=== PATIENT | female | born 1965 | race Caucasian/White ===

== ENCOUNTER → 2016-04-14 | Outpatient (CLI) | payer OTHER ==
[~2016-04-14] MED LIST: AMOXICILLIN500 MG PO; ANAPROX DS550 MG PO; ANTIVERT25 MG PO; B12100 MC1 PO; BACTROBAN OINT22 GM PO; BENTYL10 MG PO; CIPROFLOXACIN500 MG PO; CYCLOBENZAPRINE5 MG PO; K-Dur 20MEQ20 MEQ PO; KEFLEX500 MG PO; LASIX40 MG PO; MIRALAX POWDER17 G1 PO; MOTRIN800 MG PO; NKHM; PRILOSEC20 MG PO; ROBAXIN500 MG PO; SEPTRA DS 800 M1 TAB PO; VICODIN ES 7501 TAB PO; VOLTAREN50 M1 PO; ZOFRAN ODT4 MG SL
== END | disposition home or self-care (01) ==
LOC: MRI 13:54
DX: S53.401A Unspecified sprain of right elbow, initial encounter (principal); M65.221 Calcific tendinitis, right upper arm; X58.XXXA Exposure to other specified factors, initial encounter; Y93.89 Activity, other specified; Y92.89 Other specified places as the place of occurrence of the external cause; Y99.8 Other external cause status

== ENCOUNTER 2019-04-29 09:33 | Observation (INO) | payer SELFPAY ==
[2019-04-29] VITALS (7 sets, daily range): BP systolic 102–142; BP diastolic 53–86
[~2019-04-29] VITALS: Ht 154.9 cm; Wt 75.3 kg
[2019-04-29 09:57] LABS: BASO % 0.4 % (0.0-1.0); EOS # 0.1 10*3/uL (0.0-0.4); EOS % 0.7 % (1.0-4.0); HEMATOCRIT 44.4 % (37.0-47.0); HEMOGLOBIN 14.4 g/dl (12.0-16.0); LYMPH # 2.3 10*3/uL (1.3-4.4); LYMPH % 24.2 % (27.0-41.0); MEAN CELL VOLUME 89.3 fl (81.0-99.0); MEAN CORPUSCULAR HGB CONC 32.4 g/dl (33.0-37.0); MEAN PLATELET VOLUME 9.8 fl (9.6-12.3); MONO # 0.6 10*3/uL (0.1-1.0); MONO % 6.1 % (3.0-9.0); NEUT # 6.6 10*3/uL (2.3-7.9); NEUT % 68.4 % (47.0-73.0); PLATELET COUNT AUTOMATED 276 10*3/uL (130-400); RED BLOOD COUNT 4.97 10*6/uL (4.10-5.10); RED CELL DISTRI WIDTH 13.3 % (0-14.5); WHITE BLOOD COUNT 9.7 10*3/uL (4.8-10.8)
[2019-04-29 10:09] LABS: ACT PARTIAL THROMBO TIME 28.2 SECONDS (20.0-32.1); INTERNATIONAL NORM RATIO 0.9 (2.0-3.5)
[2019-04-29 10:13] LABS: ALBUMIN 4.2 gm/dl (3.1-4.5); ALKALINE PHOSPHATASE 102 U/L (45-117); BUN 12 mg/dl (7-24); CHLORIDE 105 mmol/L (98-107); CREATININE 1.13 mg/dL (0.55-1.02); POTASSIUM 3.9 mmol/L (3.5-5.1); SGOT/AST 15 IU/L (3-35); SGPT/ALT 24 U/L (12-78); SODIUM 140 mmol/L (136-145); TOTAL PROTEIN 7.6 gm/dL (6.4-8.2)
[2019-04-29 10:16] LABS: TROPONIN I < 0.015 ng/ml (<0.045)
[2019-04-29] MEDS ORDERED: PROBIOTIC1 EAC4 PO (12:08)
[2019-04-29] MEDS ORDERED: CELEXA40 MG PO (12:09)
[2019-04-29] MEDS ORDERED: BUSPIRONE10 MG PO (12:10)
[2019-04-29] MEDS ORDERED: STOOL SOFTENER100 M3 PO (12:10)
[2019-04-29] MEDS ORDERED: VISTARIL25 M2 PO (12:11)
[2019-04-29] MEDS ORDERED: HYDROCHLOROTH12.5 M2 PO (12:11)
[2019-04-29] MEDS ORDERED: OMEPRAZOLE40 MG PO (12:12)
--- NOTE | 2019-04-29 12:35 | NUR ---
A 54, admitted to 5E, under the services of SUSHIL Carter DO with a diagnosis of CHEST PAIN. Chief complaint is CHEST PAIN. Patient arrived via bed from ER. Monitor applied. Initial assessment completed. Vital signs taken and recorded. SUSHIL CARTER DO notified of admission to the unit. Orders received. See assessment for past medical history, medications and allergies. Patient and/or family oriented to unit. [address] visitation policy reviewed. Clothing/patient valuable form completed. JOHANN GUTIÉRREZ
--- NOTE | 2019-04-29 19:35 | NUR ---
24 HR chart check completed.
--- NOTE | 2019-04-29 20:00 | NUR ---
SLEEPING. NO DISTRESS NOTED. RESPIRATIONS EASY. LUNGS DIMINISHED, CLEAR. PULSE OX 97% RA. DENIES CHEST PAIN. CALL LIGHT WITHIN REACH. NO VOICED COMPLAINTS
[2019-04-30] VITALS: BP 112/68
--- NOTE | 2019-04-30 | NUR ---
CONTINUES TO SLEEP WITH NO DISTRESS NOTED. RESPIRATIONS EASY. VSS. CALL LIGHT WITHIN REACH.
--- NOTE | 2019-04-30 06:00 | NUR ---
SLEPT THROUGHOUT NIGHT WITH NO DISTRESS NOTED. RESPIRATIONS EASY. NO COMPLAINTS OF CHEST PAIN. CALL LIGHT WITHIN REACH. NO VOICED COMPLAINTS THIS SHIFT
[2019-04-30 06:37] LABS: BASO # 0.1 10*3/uL (0.0-0.1); BASO % 0.6 % (0.0-1.0); EOS # 0.1 10*3/uL (0.0-0.4); LYMPH # 2.1 10*3/uL (1.3-4.4); LYMPH % 25.8 % (27.0-41.0); MEAN CELL VOLUME 88.1 fl (81.0-99.0); MEAN CORPUSCULAR HGB 28.7 pg (27.0-31.0); MEAN CORPUSCULAR HGB CONC 32.6 g/dl (33.0-37.0); MEAN PLATELET VOLUME 10.1 fl (9.6-12.3); MONO # 0.5 10*3/uL (0.1-1.0); MONO % 6.4 % (3.0-9.0); NEUT # 5.3 10*3/uL (2.3-7.9); PLATELET COUNT AUTOMATED 279 10*3/uL (130-400); RED BLOOD COUNT 5.22 10*6/uL (4.10-5.10); RED CELL DISTRI WIDTH 13.2 % (0-14.5)
[2019-04-30 07:00] LABS: ALBUMIN 4.1 gm/dl (3.1-4.5); ALKALINE PHOSPHATASE 101 U/L (45-117); BUN 11 mg/dl (7-24); CHLORIDE 105 mmol/L (98-107); CHOLESTEROL 239 mg/dL (<200); CREATININE 0.99 mg/dL (0.55-1.02); FREE T4 1.06 ng/dl (0.76-1.46); HDL CHOLESTEROL 50 mg/dl (40-60); LDL CHOLESTEROL 142 mg/dL (9-159); PHOSPHOROUS 3.4 mg/dL (2.5-4.9); POTASSIUM 4.4 mmol/L (3.5-5.1); SGOT/AST 20 IU/L (3-35); SGPT/ALT 27 U/L (12-78); SODIUM 139 mmol/L (136-145); TOTAL PROTEIN 7.5 gm/dL (6.4-8.2); TRIGLYCERIDES 237 mg/dl (<150); VLDL CHOLESTEROL 47 mg/dL (6-40)
[2019-04-30 07:20] LABS: VITAMIN D, 25-HYDROXY 21.9 ng/mL (30-100)
[2019-04-30] MEDS ORDERED: LIPITOR20 MG PO (07:51)
[2019-04-30 08:00] VITALS: BP 131/83
--- NOTE | 2019-04-30 08:38 | NUR ---
SITTING UP IN BED. NO ACUTE DISTRESS NOTED. RESPIRATIONS EASY. LUNGS DIMINISHED, CLEAR. PULSE OX 95% RA. DENIES CHEST PAIN. CALL LIGHT WITHIN REACH. NO VOICED COMPLAINTS
--- NOTE | 2019-04-30 09:30 | NUR ---
CONTACTED JENNI HATFIELD REGARDING CHANGE IN CARDIAC RHYTHM - PATIENT GOING IN AND OUT OF [facility]. PER JENNI, HOLD D/C UNTIL SHE IS OUT OF MEETING
--- NOTE | 2019-04-30 10:00 | NUR ---
STAT EKG OBTAINED, PATIENT NOT CURRENTLY IN BIGEMINY. PATIENT DENIES CHEST PAIN. VSS. ARTEAGA PRESENT ON FLOOR TO REVIEW MONITOR STRIP AND EKG. WILL DISCUSS WITH CARDIOLOGY REGARDING RECOMMENDATIONS
[2019-04-30] MEDS ORDERED: LOPRESSOR25 MG PO (10:21)
--- NOTE | 2019-04-30 10:49 | NUR ---
PATIENT AWAITING DISCHARGE, DR. HAYES TO SEE HER TODAY FIRST, SHE WILL FOLLOW UP WITH HIM IN OFFICE RE: HOLTER MONITOR WHICH CARDIAC REHAB WILL PLACE ON PATIENT ALSO PRIOR TO DISCHARGE.
--- NOTE | 2019-04-30 11:12 | NUR ---
Project Development Director in to talk to patient. Patient states lives at HOME with . There are FEW steps in the home. Physician: TINY MACK Pharmacy: [facility] health services: NONE Patient's level of ADLs: INDEPENDENT Patient has working utilities: YES DME: NONE Follow-up physician's appointment after d/c: WILL BE MADE BY HOSPITALIST NURSE DIRECTOR ON DISCHARGE Does patient want to access PORTAL?: NO Discharge plan PT LIVES AT HOME WITH HER AND IS INDEPENDENT IN HER CARE. DENIES SHE WILL HAVE NEEDS ON DISCHARGE. PLANS TO RETURN HOME WHEN MEDICALLY STABLE. STATES SHE WILL HAVE A RIDE HOME ON DISCHARGE. WILL CONTINUE TO FOLLOW.. AMANDA KILPATRICK
[2019-04-30 12:00] VITALS: BP 137/75
--- NOTE | 2019-04-30 12:15 | NUR ---
PER SHIRLEY HATFIELD SHE HAS SPOKEN WITH DR. HAYES RE: PATIENT TO FOLLOW UP WITH HIM IN OFFICE AND HE DOES NOT NEED TO SEE THE PATIENT PRIOR TO DISCHARGE TODAY. HOLTER MONITOR IS IN PLACE, PATIENT TO RETURN THE EQUIPMENT AFTER 48 HOURS, MONDAY AFTERNOON. PATIENT WILL ALSO HAVE A STRESS TEST ARRANGED AT HER NEXT CARDIOLOGY APPOINTMENT, WHICH HAS BEEN ARRANGED BY THE OFFICE STAFF.
--- NOTE | 2019-04-30 12:30 | NUR ---
Discharge instructions reviewed with patient. Patient receptive and verbalizes understanding. Follow-up care arranged. Written instructions given to patient. SHE IS CALLING FOR RIDE HOME. TEE PIKE
--- NOTE | 2019-04-30 13:04 | NUR ---
PATIENT DISCHARGED TO [facility], AMBULATORY, FOR TRANSPORT HOME BY PRIVATE VEHICLE WITH HER .
== END 2019-04-30 13:04 | disposition home or self-care (01) ==
LOC: ED 09:33 → EDHOLD 11:34 → 5E 11:56
PROVIDERS: Emergency Medicine; Registered Nurse; ADMIT Internal Medicine
DX: R07.89 Other chest pain (principal); F41.1 Generalized anxiety disorder; K21.9 Gastro-esophageal reflux disease without esophagitis; N17.0 Acute kidney failure with tubular necrosis; Z87.891 Personal history of nicotine dependence; Z23 Encounter for immunization

== ENCOUNTER → 2019-05-29 | Outpatient (CLI) | payer SELFPAY ==
[~2019-05-29] MED LIST changes: +BUSPIRONE10 MG PO; +CELEXA40 MG PO; +HYDROCHLOROTH12.5 M2 PO; +LIPITOR20 MG PO; +LOPRESSOR25 MG PO; +OMEPRAZOLE40 MG PO; +PROBIOTIC1 EAC4 PO; +STOOL SOFTENER100 M3 PO; +VISTARIL25 M2 PO
--- NOTE | 2019-05-29 07:48 | NUR ---
INFORMED CONSENT OBTAINED FOR A EXERCISE CARDIOLITE STRESS TEST WITH DR. HAYES. RESTING EKG SINUS VIRGIE WITH A HT RT OF 47 AND A BP OF 120/68 IN THE SUPINE POSITION. AND A HT RT OF 61 AND BP OF 114/64 IN THE STANDING POSITION. PT COMPLETED 4:50 OF A MICHAEL PROTOCOL WITH COMPLETION OG 1:50 INTO STAGE II AT 2.5 MPH AND 12% GRADE. REACHED A PEAK HT RT OF 155 WHICH IS 93% OF PREDICTED MAX WITH A PEAK BP OF 168/76. TEST TERMINATED DUE TO FATIGUE. EKG NON DIAGNOSTIC. HAS AN AVERAGE EXERCISE TOLERANCE. LAST RECOVERY HT RT OF 87, AND BP OF 138/48. TAKEN TO NUCLEAR IMAGING IN STABLE CONDITION.
== END | disposition home or self-care (01) ==
LOC: CARD 00:09
DX: I49.3 Ventricular premature depolarization (principal); R73.03 Prediabetes; E78.5 Hyperlipidemia, unspecified; Z82.49 Family history of ischemic heart disease and other diseases of the circulatory system

== ENCOUNTER 2020-02-03 10:06 | Observation (INO) | payer SELFPAY ==
[~2020-02-03] VITALS: Ht 154.9 cm; Wt 84.2 kg
[2020-02-03 10:10] VITALS: BP 154/86
[2020-02-03 10:57] LABS: BASO # 0.1 10*3/uL (0.0-0.1); BASO % 0.4 % (0.0-1.0); EOS % 0.1 % (1.0-4.0); HEMATOCRIT 44.7 % (37.0-47.0); LYMPH # 2.1 10*3/uL (1.3-4.4); LYMPH % 17.9 % (27.0-41.0); MEAN CELL VOLUME 85.8 fl (81.0-99.0); MEAN CORPUSCULAR HGB 27.6 pg (27.0-31.0); MEAN CORPUSCULAR HGB CONC 32.2 g/dl (33.0-37.0); MONO # 0.4 10*3/uL (0.1-1.0); MONO % 3.5 % (3.0-9.0); NEUT # 9.3 10*3/uL (2.3-7.9); NEUT % 77.8 % (47.0-73.0); PLATELET COUNT AUTOMATED 349 10*3/uL (130-400); RED BLOOD COUNT 5.21 10*6/uL (4.10-5.10); RED CELL DISTRI WIDTH 12.9 % (0-14.5)
[2020-02-03 11:01] LABS: BILIRUBIN Negative (Negative); BLOOD Negative (Negative); CLARITY Cloudy (Clear); COLOR Yellow (Yellow); GLUCOSE Negative (Negative); KETONE 1+ (Negative); LEUKO ESTERASE Trace (Negative); NITRITE Negative (Negative); SPECIFIC GRAVITY 1.025 (1.001-1.030)
[2020-02-03 11:06] LABS: PH >= 9.0 (4.5-8.0)
[2020-02-03 11:07] LABS: ACT PARTIAL THROMBO TIME 27.3 SECONDS (20.0-32.1)
[2020-02-03 11:12] LABS: ALBUMIN 4.3 gm/dl (3.1-4.5); CREATININE 1.28 mg/dL (0.55-1.02); POTASSIUM 3.1 mmol/L (3.5-5.1); TOTAL PROTEIN 7.6 gm/dL (6.4-8.2)
[2020-02-03 11:18] LABS: BACTERIA 3+; EPITHELIAL CELLS 31-40
--- NOTE | 2020-02-03 11:47 | NUR ---
PT IS SITTING UP IN THE BED. SHE STATES MINIMAL IMPROVEMENT WITH THE MEDICATIONS GIVEN.
[2020-02-03 12:27] VITALS: BP 148/56
--- NOTE | 2020-02-03 14:30 | NUR ---
PT HAD A FEW CRACKERS AND AN APPLE JUICE AND REPORTS FEELING SLIGHTLY IMPROVED.
--- NOTE | 2020-02-03 15:30 | NUR ---
PT AGAIN WITH DIAPHORESIS AND NAUSEA AND DRY HEAVES. DR. MEDINA IS AWARE. PT WILL BE MEDICATED PER DR. PIERRE.
--- NOTE | 2020-02-03 15:48 | NUR ---
PT IS RESTING IN BED.
--- NOTE | 2020-02-03 16:47 | NUR ---
PT SLEEPING IN ROOM.
--- NOTE | 2020-02-03 17:57 | NUR ---
STATUS REMAINS UNCHANGED. PT IS SLEEPING IN ROOM.
--- NOTE | 2020-02-03 19:12 | NUR ---
ASSUMED PT CARE FROM NIRMALA BHATTI RN
--- NOTE | 2020-02-03 21:00 | NUR ---
A 54, admitted to 4E, under the services of MONIK Alvares DO with a diagnosis of RIGHT FLANK PAIN, NAUSEA/VOMITING. Chief complaint is PAIN. Patient arrived via bed from ER. Monitor applied. Initial assessment completed. Vital signs taken and recorded. MONIK ALVARES DO notified of admission to the unit. Orders received. See assessment for past medical history, medications and allergies. Patient and/or family oriented to unit. visitation policy reviewed. Clothing/patient valuable form completed. VIKY LARA
[2020-02-03 21:20] VITALS: BP 148/81
[2020-02-04] VITALS: BP 110/50
[2020-02-04 06:23] LABS: BASO % 0.2 % (0.0-1.0); EOS % 0.1 % (1.0-4.0); HEMATOCRIT 35.1 % (37.0-47.0); LYMPH # 2.6 10*3/uL (1.3-4.4); LYMPH % 20.5 % (27.0-41.0); MEAN CELL VOLUME 86.2 fl (81.0-99.0); MEAN CORPUSCULAR HGB CONC 32.5 g/dl (33.0-37.0); MEAN PLATELET VOLUME 9.8 fl (9.6-12.3); MONO # 0.8 10*3/uL (0.1-1.0); MONO % 6.3 % (3.0-9.0); NEUT # 9.1 10*3/uL (2.3-7.9); NEUT % 72.5 % (47.0-73.0); PLATELET COUNT AUTOMATED 267 10*3/uL (130-400); RED BLOOD COUNT 4.07 10*6/uL (4.10-5.10); RED CELL DISTRI WIDTH 13.3 % (0-14.5); WHITE BLOOD COUNT 12.5 10*3/uL (4.8-10.8)
[2020-02-04 06:46] LABS: BUN 11 mg/dl (7-24); CHLORIDE 111 mmol/L (98-107); CREATININE 0.95 mg/dL (0.55-1.02); SODIUM 145 mmol/L (136-145)
[2020-02-04 06:51] LABS: CHOLESTEROL 129 mg/dL (<200); FREE T4 0.97 ng/dl (0.76-1.46); HDL CHOLESTEROL 48 mg/dl (40-60); LDL CHOLESTEROL 50 mg/dL (9-159); TRIGLYCERIDES 155 mg/dl (<150); VLDL CHOLESTEROL 31 mg/dL (6-40)
[2020-02-04 08:00] VITALS: BP 130/66
[2020-02-04] MEDS ORDERED: HYDROCHLOROTH12.5 M3 PO (08:08)
[2020-02-04] MEDS ORDERED: CYCLOBENZAPRINE10 MG PO (08:09)
--- NOTE | 2020-02-04 09:00 | NUR ---
Rn Tele in to talk to patient. Patient states lives at home with . There are 2 steps in the home. Physician: allen tolentino Pharmacy: [facility] Home health services: none Patient's level of ADLs: INDEPENDENT Patient has working utilities: all working DME: none Follow-up physician's appointment after d/c: will be made by hospitalist nurse director upon discharge Does patient want to access PORTAL?: no Discharge plan discussed with patient, she lives at home with , she states she is independent in adls and ambulation, drives, she states she will return home when discharged and denies any home needs, case management will follow. MEGHAN MANUEL
[2020-02-04] MEDS ORDERED: VITAMIN D3125 MC2 PO (09:20)
[2020-02-04] MEDS ORDERED: HYDR25T PO (09:20)
[2020-02-04] MEDS ORDERED: ASPIRIN CHILDRE81 MG PO (09:21)
[2020-02-04] MEDS ORDERED: ZOFRAN4 MG PO (11:11)
--- NOTE | 2020-02-04 11:45 | NUR ---
Discharge instructions reviewed with patient/family. Patient receptive and verbalizes understanding. Follow-up care arranged. Written instructions given to patient/family. [place] DISCONTINUED. PATIENT AMBULATORY OFF FLOOR.PICKED UP BY . MANDA BRANTLEY
== END 2020-02-04 11:45 | disposition home or self-care (01) ==
LOC: ED 10:06 → EDHOLD 18:52 → 4E 20:15
PROVIDERS: Emergency Medicine; Internal Medicine; ADMIT Internal Medicine; ATTEND Internal Medicine
DX: R10.9 Unspecified abdominal pain (principal); R11.2 Nausea with vomiting, unspecified; E87.2 Acidosis; D72.829 Elevated white blood cell count, unspecified; E87.6 Hypokalemia; N17.0 Acute kidney failure with tubular necrosis; R73.9 Hyperglycemia, unspecified; R74.8 Abnormal levels of other serum enzymes; R79.82 Elevated C-reactive protein (CRP); R82.71 Bacteriuria; R82.4 Acetonuria; F41.1 Generalized anxiety disorder; K21.9 Gastro-esophageal reflux disease without esophagitis

== ENCOUNTER 2020-02-24 09:20 | Emergency (ER) | payer SELFPAY ==
[~2020-02-24] VITALS: Wt 83.0 kg
[~2020-02-24 09:20] MED LIST changes: +ASPIRIN CHILDRE81 MG PO; +CYCLOBENZAPRINE10 MG PO; +HYDR25T PO; +HYDROCHLOROTH12.5 M3 PO; +VITAMIN D3125 MC2 PO; +ZOFRAN4 MG PO
[2020-02-24 10:23] LABS: BASO % 0.3 % (0.0-1.0); EOS # 0.2 10*3/uL (0.0-0.4); EOS % 1.6 % (1.0-4.0); HEMATOCRIT 38.2 % (37.0-47.0); LYMPH # 2.9 10*3/uL (1.3-4.4); LYMPH % 30.9 % (27.0-41.0); MEAN CELL VOLUME 86.4 fl (81.0-99.0); MEAN CORPUSCULAR HGB 27.8 pg (27.0-31.0); MEAN CORPUSCULAR HGB CONC 32.2 g/dl (33.0-37.0); MEAN PLATELET VOLUME 9.9 fl (9.6-12.3); MONO # 0.6 10*3/uL (0.1-1.0); MONO % 6.7 % (3.0-9.0); NEUT # 5.5 10*3/uL (2.3-7.9); NEUT % 60.1 % (47.0-73.0); PLATELET COUNT AUTOMATED 283 10*3/uL (130-400); RED BLOOD COUNT 4.42 10*6/uL (4.10-5.10); RED CELL DISTRI WIDTH 13.1 % (0-14.5); WHITE BLOOD COUNT 9.2 10*3/uL (4.8-10.8)
[2020-02-24 10:33] LABS: INTERNATIONAL NORM RATIO 0.9 (2.0-3.5)
[2020-02-24 10:37] LABS: ALBUMIN 3.7 gm/dl (3.1-4.5); ALKALINE PHOSPHATASE 117 U/L (45-117); BUN 12 mg/dl (7-24); CHLORIDE 105 mmol/L (98-107); CREATININE 0.98 mg/dL (0.55-1.02); POTASSIUM 3.6 mmol/L (3.5-5.1); SGOT/AST 28 IU/L (3-35); SGPT/ALT 38 U/L (12-78); SODIUM 141 mmol/L (136-145)
== END 2020-02-24 11:28 | disposition home or self-care (01) ==
LOC: ED 09:20
PROVIDERS: Nurse Practitioner Family
DX: M79.604 Pain in right leg (principal); Z88.5 Allergy status to narcotic agent; Z79.899 Other long term (current) drug therapy; Z79.82 Long term (current) use of aspirin; Z98.51 Tubal ligation status; Z90.49 Acquired absence of other specified parts of digestive tract; Z90.89 Acquired absence of other organs; Z87.891 Personal history of nicotine dependence

== ENCOUNTER 2023-04-19 02:37 | Emergency (ER) | payer BC ==
[~2023-04-19] VITALS: Ht 154.9 cm; Wt 88.5 kg
[2023-04-19 03:28] LABS: BASO # 0.1 10*3/uL (0.0-0.1); BASO % 0.4 % (0.0-1.0); EOS # 0.1 10*3/uL (0.0-0.4); EOS % 0.8 % (1.0-4.0); HEMATOCRIT 43.8 % (37.0-47.0); LYMPH # 2.1 10*3/uL (1.3-4.4); LYMPH % 16.6 % (27.0-41.0); MEAN CELL VOLUME 86.9 fl (81.0-99.0); MEAN CORPUSCULAR HGB CONC 31.1 g/dl (33.0-37.0); MEAN PLATELET VOLUME 9.4 fl (9.6-12.3); MONO # 0.4 10*3/uL (0.1-1.0); MONO % 3.2 % (3.0-9.0); NEUT % 78.7 % (47.0-73.0); PLATELET COUNT AUTOMATED 325 10*3/uL (130-400); RED BLOOD COUNT 5.04 10*6/uL (4.10-5.10); RED CELL DISTRI WIDTH 13.3 % (0-14.5); WHITE BLOOD COUNT 12.7 10*3/uL (4.8-10.8)
[2023-04-19] MEDS ORDERED: BUSPIRONE HCL30 MG PO (03:40)
[2023-04-19] MEDS ORDERED: LINZESS290 MC1 PO (03:43)
[2023-04-19] MEDS ORDERED: NORVASC5 MG PO (03:43)
[2023-04-19] MEDS ORDERED: BUPROPION HYDR150 M3 PO (03:45)
[2023-04-19 03:50] LABS: POTASSIUM 3.2 mmol/L (3.4-5.1); TOTAL PROTEIN 7.6 gm/dL (6.0-8.0)
[2023-04-19] MEDS ORDERED: PHENERGAN25 M3 PO (06:48)
== END 2023-04-19 14:08 | disposition home or self-care (01) ==
LOC: ED 02:37
PROVIDERS: Internal Medicine
DX: K52.9 Noninfective gastroenteritis and colitis, unspecified (principal); N18.31 Chronic kidney disease, stage 3a; E87.6 Hypokalemia; D72.829 Elevated white blood cell count, unspecified; R11.2 Nausea with vomiting, unspecified; F17.210 Nicotine dependence, cigarettes, uncomplicated; Z88.5 Allergy status to narcotic agent; Z90.49 Acquired absence of other specified parts of digestive tract; Z98.51 Tubal ligation status; Z90.89 Acquired absence of other organs; Z98.890 Other specified postprocedural states